=== PATIENT | male | born 1960 | race Caucasian/White ===

== ENCOUNTER 2020-05-11 17:18 | Emergency (ER) | payer BC, OTHER ==
--- NOTE | 2020-05-11 17:35 | EDM.PDOC ---
ED HPI GENERAL MEDICAL PROBLEM - General Chief Complaint: Laceration Stated Complaint: LACERATION TO HEAD Time Seen by Provider: 05/11/20 17:27 Source of Information: Reports: Patient, RN History Limitations: Reports: No Limitations - History of Present Illness INITIAL COMMENTS - FREE TEXT/NARRATIVE: PtMatt presents to ER with complaints of laceration to top of head. He states that he hit it on a board. He denies any LOC. He is not an any blood thinners/anticoagulation. Denies any headache. No vision change. He states that he remembers the entire event. Denies any neck pain. No injury other than what is isolated to his scalp. Onset: Today Onset Date: 05/11/20 Location: Reports: Head Quality: Reports: Sharp Head Pain Score (Numeric/FACES): 2 Past Medical History Endocrine/Metabolic History: Reports: Diabetes, Type II - Infectious Disease History Infectious Disease History: Reports: None Social & Family History - Tobacco Use Tobacco Use Status *Q: Never Tobacco User ED ROS GENERAL - Review of Systems Review Of Systems: See Below Constitutional: Reports: No Symptoms HEENT: Denies: Vertigo, Vision Change Respiratory: Reports: No Symptoms Cardiovascular: Reports: No Symptoms Endocrine: Reports: No Symptoms GI/Abdominal: Reports: No Symptoms : Reports: No Symptoms Musculoskeletal: Reports: No Symptoms Skin: Reports: No Symptoms Neurological: Reports: No Symptoms. Denies: Confusion, Dizziness, Headache, Numbness, Paresthesia, Seizure, Syncope, Tingling, Tremors, Trouble Speaking, Difficulty Walking, Weakness, Change in Speech, Gait Disturbance Psychiatric: Reports: No Symptoms Hematologic/Lymphatic: Reports: No Symptoms Immunologic: Reports: No Symptoms ED EXAM, SKIN/RASH Exam: See Below Exam Limited By: No Limitations General Appearance: Alert, WD/WN, No Apparent Distress Eye Exam: Bilateral Eye: EOMI, Normal Fundi, Normal Inspection, PERRL Throat/Mouth: Normal Inspection, Normal Lips, Normal Teeth, Normal Gums, Normal Oropharynx, Normal Voice, No Airway Compromise Head: Other (approx. 2 cm superficial laceration to scalp.) Neck: Normal Inspection, Supple, Non-Tender, Full Range of Motion Respiratory/Chest: No Respiratory Distress Peripheral Pulses: 4+: Radial (L) GI/Abdominal: Soft, Non-Tender, No Distention, No Mass (Male) Exam: Deferred Rectal (Males) Exam: Deferred Back Exam: Full Range of Motion. No: Paraspinal Tenderness, Vertebral Tenderness Extremities: Normal Inspection, Normal Range of Motion, Non-Tender, No Pedal Edema, Normal Capillary Refill Neurological: Alert, Oriented, CN II-XII Intact, Normal Cognition, Normal Gait Psychiatric: Normal Affect, Normal Mood Skin: Warm, Dry, Intact, Normal Color, No Rash Location, Skin: Head ED SKIN PROCEDURES - Laceration/Wound Repair Head Appearance: Superficial Skin Prep: Chlorhexidine (Hibiciens), Saline Exploration/Debridement/Repair: Wound Explored Closed with: Dermabond Lac/Wound length In cm: 2 Course - Vital Signs Last Recorded V/S: Last Vital Signs Temp 36.7 C 05/11/20 17:24 Pulse 102 H 05/11/20 17:24 Resp 16 05/11/20 17:24 BP 127/87 05/11/20 17:24 Pulse Ox 96 05/11/20 17:24 Departure - Departure Time of Disposition: 17:47 Disposition: Home, Self-Care 01 Clinical Impression: Scalp laceration - Discharge Information Instructions: Tissue Adhesive Wound Care, Laceration Care, Adult Referrals: Arcelia Barron MD [Primary Care Provider] - Forms: ED Department Discharge Additional Instructions: Keep dry until Wednesday AM. You can shower then. Do not submerge head for long periods of time (no swimming) for 1 week. Adhesive will gradually slough off as the wound heals. Return to ER/clinic if you see any redness, swelling, or discharge from the area. Sepsis Event Note (ED) - Evaluation Sepsis Screening Result: No Definite Risk - Focused Exam Vital Signs: Vital Signs Temp Pulse Resp BP Pulse Ox 05/11/20 17:24 36.7 C 102 H 16 127/87 96 - Problem List Review Problem List Initiated/Reviewed/Updated: Yes - Assessment/Plan Plan: Keep dry until Wednesday AM. You can shower then. Do not submerge head for long periods of time (no swimming) for 1 week. Adhesive will gradually slough off as the wound heals. Return to ER/clinic if you see any redness, swelling, or discharge from the area.
== END 2020-05-11 17:45 | disposition home or self-care (01) ==
LOC: VM.ED 17:18
DX: S01.01XA Laceration without foreign body of scalp, initial encounter (principal); E11.9 Type 2 diabetes mellitus without complications; W22.8XXA Striking against or struck by other objects, initial encounter
CPT/HCPCS: 12001; 99282-25; 99283